=== PATIENT | female | born 1970 | race Caucasian/White ===

== ENCOUNTER 2017-05-16 20:47 | Emergency (ER) | payer OTHER ==
[~2017-05-16] VITALS: Ht 162.6 cm; Wt 142.4 kg
[~2017-05-16 20:47] MED LIST: ALBU.083IS IH; ALBU90OI INH; ALLO100 PO; AZIT250 PO; BENZ100A PO; Bactrim Ds Tab1 EACH PO; CEPH500 PO; COLCRYS0.6 MG PO; CRUTCH2 XX; CYCL10 PO; Cheratussin AC118 ML PO; DULO30 PO; GABA300; LEVSOD50 PO; LEVSOD75 PO; METF500 PO; METPRE4DP PO; MUPI2TC TOP; Mucinex600 MG PO; Naprosyn500 MG PO; Neurontin 300300 MG PO; Norco 10-325 T1 EACH PO; Norco 5-325 Ta1 EACH PO; PENVK500 PO; PRED20 PO; Percocet 5-3251 EACH PO; Prednisone20 MG PO; VALA500 PO; Valium5 MG PO; Ventolin Soln3 ML INH; Zofran Odt4 MG PO; [UNRECOGNIZED DRUG - REMARK]
[2017-05-16 23:28] LABS: Source, Urine Clean Catch
[2017-05-16 23:32] LABS: Bilirubin, Urine Neg (Neg); Blood, Urine Neg (Neg); Glucose Qualitative, Urine Neg (Neg); Ketones, Urine 2+ (Neg); Leukocyte Esterase, Urine 2+ (Neg); Nitrite, Urine Neg (Neg); Protein, Urine 2+ (Neg); Specific Gravity, Urine 1.025 (1.003-1.022); Urobilinogen, Urine NORM (Normal)
[2017-05-16 23:35] LABS: BASOPHILS ABSOLUTE AUTO 0.04 K/mm3 (0.00-0.23); BASOPHILS PERCENT AUTO 0 % (0-2); EOSINOPHILS ABSOLUTE AUTO 0.02 K/mm3 (0.00-0.68); EOSINOPHILS PERCENT AUTO 0 % (0-6); Hematocrit 47.5 % (33.0-51.0); Hemoglobin 15.7 g/dL (11.5-16.0); IMMATURE GRAN ABSOLUTE AUTO 0.04 K/mm3 (0.00-0.10); IMMATURE GRAN PERCENT AUTO 0 % (0-1); LYMPHOCYTES ABSOLUTE AUTO 1.48 K/mm3 (0.84-5.20); LYMPHOCYTES PERCENT AUTO 12 % (21-46); MONOCYTES ABSOLUTE AUTO 0.83 K/mm3 (0.16-1.47); MONOCYTES PERCENT AUTO 7 % (4-13); Mean Corpuscular HGB 30.4 pg (26.0-34.0); Mean Corpuscular HGB Conc 33.1 g/dL (31.5-36.5); Mean Corpuscular Volume 92 fL (80-100); Mean Platelet Volume 9.4 fL (9.1-12.4); NEUTROPHILS ABSOLUTE AUTO 10.28 K/mm3 (1.96-9.15); NEUTROPHILS PERCENT AUTO 81 % (41-73); Platelet Count 276 K/mm3 (150-400); RDW Coefficient Variation 13.1 % (11.7-14.2); RDW Standard Deviation 44.1 fL (35.1-46.3); Red Blood Cell Count 5.17 M/mm3 (3.80-5.20); White Blood Cell Count 12.69 K/mm3 (4.00-11.30)
[2017-05-16 23:40] LABS: Appearance, Urine Hazy (Clear); Color, Urine Amber (P-Yellow)
[2017-05-16 23:41] LABS: Bacteria Many /hpf; Red Blood Cells, Urine Not Seen /hpf (0-2); Squamous Epithelial Cells Few /hpf (Few); White Blood Cells, Urine 25-50 /hpf (0-5)
[2017-05-16] MEDS ORDERED: IBUP600 PO (23:51)
[2017-05-16 23:53] LABS: Influenza A Negative (NEGATIVE); Influenza B Negative (NEGATIVE)
[2017-05-16 23:55] LABS: Alanine Aminotransfer (ALT/SGP 179 U/L (12-78); Albumin, Blood 3.5 g/dL (3.4-5.0); Albumin/Globulin Ratio 0.7 (0.8-1.8); Alk Phos 105 U/L (50-136); Anion Gap 13 mmol/L (6-16); Aspartate Aminotrans (AST/SGOT 90 U/L (12-37); Bilirubin, Total 0.5 mg/dL (0.1-1.0); Blood Urea Nitrogen 16 mg/dL (8-24); Bun/Creatinine Ratio 26.2 (12.0-20.0); CO2, Blood 23 mmol/L (21-32); Calcium, Blood 8.8 mg/dL (8.5-10.1); Chloride, Blood 110 mmol/L (98-108); Creatinine, Blood 0.61 mg/dL (0.40-1.00); Globulin, Blood 5.2 g/dL (2.2-4.0); Glomerular Filtration Rate >60 (60-); Glucose, Blood 107 mg/dL (70-99); Potassium, Blood 3.4 mmol/L (3.5-5.5); Sodium, Blood 146 mmol/L (136-145); Total Protein, Blood 8.7 g/dL (6.4-8.2)
[2017-05-17] MEDS ORDERED: Zofran Odt4 MG SL (00:45)
[2017-05-17] MEDS ORDERED: CEPH500 PO (00:45)
[2017-07-09] MEDS ORDERED: LEVSOD50 PO (14:58)
[2017-07-09] MEDS ORDERED: ALLO100 PO (14:59)
[2017-07-09] MEDS ORDERED: METFORMIN HCL500 MG PO (14:59)
[2017-07-09] MEDS ORDERED: Mobic15 MG PO (15:00)
[2017-07-09] MEDS ORDERED: Neurontin 300300 MG PO (15:00)
[2017-07-09] MEDS ORDERED: PRED10 PO (15:01)
[2017-07-09] MEDS ORDERED: Zofran4 MG PO (15:02)
[2017-07-09] MEDS ORDERED: EPCLUSA 400 MG1 EACH PO (15:03)
== END 2017-05-17 02:31 | disposition home or self-care (01) ==
LOC: ER 20:47
PROVIDERS: Emergency Medicine
DX: N39.0 Urinary tract infection, site not specified (principal); J45.909 Unspecified asthma, uncomplicated; M10.9 Gout, unspecified; E03.9 Hypothyroidism, unspecified; Z79.899 Other long term (current) drug therapy; Z86.19 Personal history of other infectious and parasitic diseases; Z79.84 Long term (current) use of oral hypoglycemic drugs; Z87.891 Personal history of nicotine dependence; Z90.49 Acquired absence of other specified parts of digestive tract
CPT/HCPCS: 80053; 81001; 81025; 83690; 85025; 87086; 87804; 96361; 96365; 96375; 96376; 99283; J0696; J1630; J2405; J2550; J7030

== ENCOUNTER → 2020-12-09 | Outpatient (CLI) | payer OTHER ==
[~2020-12-09] MED LIST changes: +EPCLUSA 400 MG1 EACH PO; +IBUP600 PO; +METFORMIN HCL500 MG PO; +Mobic15 MG PO; +PRED10 PO; +Zofran Odt4 MG SL; +Zofran4 MG PO
== END | disposition home or self-care (01) ==
LOC: LAB 19:23 → LAB SHORT 19:23
DX: L03.116 Cellulitis of left lower limb (principal)
CPT/HCPCS: 87070; 87077; 87147; 87186; 87205

== ENCOUNTER 2021-09-23 03:33 | Emergency (ER) | payer SELFPAY ==
[~2021-09-23] VITALS: Ht 160 cm; Wt 149.7 kg
[2021-09-23] MEDS ORDERED: PAXLOVID 2X1501 EACH PO (07:13)
== END 2021-09-23 07:24 | disposition home or self-care (01) ==
LOC: ER 03:33
DX: U07.1 COVID-19 (principal); J45.909 Unspecified asthma, uncomplicated; Z87.891 Personal history of nicotine dependence
CPT/HCPCS: 99284

== ENCOUNTER 2022-01-20 20:25 | Emergency (ER) | payer SELFPAY ==
[~2022-01-20] VITALS: Ht 160 cm; Wt 149.7 kg
[~2022-01-20 20:25] MED LIST changes: +PAXLOVID 2X1501 EACH PO
[2022-01-20 21:06] LABS: BASOPHILS ABSOLUTE AUTO 0.05 K/mm3 (0.00-0.23); BASOPHILS PERCENT AUTO 1 % (0-2); EOSINOPHILS ABSOLUTE AUTO 0.22 K/mm3 (0.00-0.68); EOSINOPHILS PERCENT AUTO 2 % (0-6); Hematocrit 43.9 % (33.0-51.0); Hemoglobin 14.7 g/dL (11.5-16.0); IMMATURE GRAN ABSOLUTE AUTO 0.03 K/mm3 (0.00-0.10); IMMATURE GRAN PERCENT AUTO 0 % (0-1); LYMPHOCYTES ABSOLUTE AUTO 1.27 K/mm3 (0.84-5.20); LYMPHOCYTES PERCENT AUTO 14 % (21-46); MONOCYTES ABSOLUTE AUTO 0.57 K/mm3 (0.16-1.47); MONOCYTES PERCENT AUTO 6 % (4-13); Mean Corpuscular HGB 31.5 pg (26.0-34.0); Mean Corpuscular HGB Conc 33.5 g/dL (31.5-36.5); Mean Corpuscular Volume 94 fL (80-100); Mean Platelet Volume 9.4 fL (9.1-12.4); NEUTROPHILS ABSOLUTE AUTO 7.26 K/mm3 (1.96-9.15); NEUTROPHILS PERCENT AUTO 77 % (41-73); Platelet Count 296 K/mm3 (150-400); RDW Coefficient Variation 13.3 % (11.7-14.2); RDW Standard Deviation 45.9 fL (35.1-46.3); Red Blood Cell Count 4.66 M/mm3 (3.80-5.20)
[2022-01-20 21:30] LABS: Albumin, Blood 3.5 g/dL (3.4-5.0); Albumin/Globulin Ratio 0.9 (0.8-1.8); Bilirubin, Total 0.3 mg/dL (0.1-1.0); Bun/Creatinine Ratio 20.5 (12.0-20.0); Calcium, Blood 8.4 mg/dL (8.5-10.1); Creatinine, Blood 0.68 mg/dL (0.40-1.00); Globulin, Blood 4.1 g/dL (2.2-4.0); Potassium, Blood 3.4 mmol/L (3.5-5.5); Total Protein, Blood 7.6 g/dL (6.4-8.2)
[2022-01-20] MEDS ORDERED: VALA500 PO (23:06)
[2022-01-20] MEDS ORDERED: Prednisone20 MG PO (23:06)
== END 2022-01-20 23:55 | disposition home or self-care (01) ==
LOC: ER 20:25
PROVIDERS: Student in an Organized Health Care Education/Training Program
DX: G51.0 Bell's palsy (principal); G43.909 Migraine, unspecified, not intractable, without status migrainosus; J45.909 Unspecified asthma, uncomplicated; Z88.8 Allergy status to other drugs, medicaments and biological substances
CPT/HCPCS: 36415; 70450; 80053; 85025; 93005; 93010; A9270; J1200; J1885; J2765; J7512

== ENCOUNTER 2022-04-16 19:15 | Inpatient (IN) | payer OTHER ==
[~2022-04-16] VITALS: Ht 167.6 cm; Wt 157.0 kg
[2022-04-16 20:34] LABS: BASOPHILS ABSOLUTE AUTO 0.04 K/mm3 (0.00-0.23); BASOPHILS PERCENT AUTO 0 % (0-2); EOSINOPHILS ABSOLUTE AUTO 0.33 K/mm3 (0.00-0.68); EOSINOPHILS PERCENT AUTO 3 % (0-6); Hematocrit 43.3 % (33.0-51.0); Hemoglobin 14.8 g/dL (11.5-16.0); IMMATURE GRAN ABSOLUTE AUTO 0.04 K/mm3 (0.00-0.10); IMMATURE GRAN PERCENT AUTO 0 % (0-1); LYMPHOCYTES ABSOLUTE AUTO 0.38 K/mm3 (0.84-5.20); LYMPHOCYTES PERCENT AUTO 3 % (21-46); MONOCYTES ABSOLUTE AUTO 0.53 K/mm3 (0.16-1.47); MONOCYTES PERCENT AUTO 4 % (4-13); Mean Corpuscular HGB 32.7 pg (26.0-34.0); Mean Corpuscular HGB Conc 34.2 g/dL (31.5-36.5); Mean Corpuscular Volume 96 fL (80-100); Mean Platelet Volume 9.5 fL (9.1-12.4); NEUTROPHILS PERCENT AUTO 90 % (41-73); Platelet Count 299 K/mm3 (150-400); RDW Coefficient Variation 13.7 % (11.7-14.2); RDW Standard Deviation 48.5 fL (35.1-46.3); Red Blood Cell Count 4.53 M/mm3 (3.80-5.20); White Blood Cell Count 13.32 K/mm3 (4.00-11.30)
[2022-04-16 20:55] LABS: Albumin, Blood 3.6 g/dL (3.4-5.0); Albumin/Globulin Ratio 0.8 (0.8-1.8); Bilirubin, Total 0.7 mg/dL (0.1-1.0); Bun/Creatinine Ratio 15.2 (12.0-20.0); Calcium, Blood 9.1 mg/dL (8.5-10.1); Creatinine, Blood 0.59 mg/dL (0.40-1.00); Globulin, Blood 4.3 g/dL (2.2-4.0); Magnesium, Blood 1.8 mg/dL (1.6-2.4); Potassium, Blood 3.4 mmol/L (3.5-5.5); Total Protein, Blood 7.9 g/dL (6.4-8.2)
[2022-04-16 21:06] LABS: Influenza A, PCR NEGATIVE (NEGATIVE); Influenza B, PCR NEGATIVE (NEGATIVE); Resp Syncytial Virus, PCR NEGATIVE (NEGATIVE); SARS-Cov-2 (COVID-19) PCR, MMC NEGATIVE (NEGATIVE)
[2022-04-17 02:08] LABS: BASOPHILS ABSOLUTE AUTO 0.02 K/mm3 (0.00-0.23); BASOPHILS PERCENT AUTO 0 % (0-2); EOSINOPHILS PERCENT AUTO 0 % (0-6); Hematocrit 42.3 % (33.0-51.0); Hemoglobin 14.2 g/dL (11.5-16.0); IMMATURE GRAN ABSOLUTE AUTO 0.15 K/mm3 (0.00-0.10); IMMATURE GRAN PERCENT AUTO 1 % (0-1); LYMPHOCYTES ABSOLUTE AUTO 0.22 K/mm3 (0.84-5.20); LYMPHOCYTES PERCENT AUTO 2 % (21-46); MONOCYTES ABSOLUTE AUTO 0.07 K/mm3 (0.16-1.47); MONOCYTES PERCENT AUTO 1 % (4-13); Mean Corpuscular HGB 32.6 pg (26.0-34.0); Mean Corpuscular HGB Conc 33.6 g/dL (31.5-36.5); Mean Corpuscular Volume 97 fL (80-100); Mean Platelet Volume 9.7 fL (9.1-12.4); NEUTROPHILS ABSOLUTE AUTO 13.35 K/mm3 (1.96-9.15); NEUTROPHILS PERCENT AUTO 97 % (41-73); Platelet Count 293 K/mm3 (150-400); Red Blood Cell Count 4.35 M/mm3 (3.80-5.20); White Blood Cell Count 13.81 K/mm3 (4.00-11.30)
[2022-04-17 02:39] LABS: Albumin, Blood 3.1 g/dL (3.4-5.0); Albumin/Globulin Ratio 0.7 (0.8-1.8); Bilirubin, Total 0.3 mg/dL (0.1-1.0); Calcium, Blood 8.5 mg/dL (8.5-10.1); Creatinine, Blood 0.73 mg/dL (0.40-1.00); Globulin, Blood 4.5 g/dL (2.2-4.0); Potassium, Blood 3.1 mmol/L (3.5-5.5); Total Protein, Blood 7.6 g/dL (6.4-8.2)
--- NOTE | 2022-04-17 07:17 | NUR ---
PT ALERT NO S/S OF ACUTE DISTRESS. SAFETY MEASURES IN PLACE REPORT GIVEN TO ON COMING NURSE.
--- NOTE | 2022-04-17 07:30 | NUR ---
ASSUMED CARE: PT RECIEVING BREATHING TX AT THIS TIME. NSR ON TELE. NO ACUTE NEEDS OR DISTRESS.
--- NOTE | 2022-04-17 12:10 | NUR ---
PT RETURNED FROM [facility]. THIS RN INFORMED HER THAT SHE IS STILL NPO FOR EGD THIS AFTERNOON. AFTER A FEW MINUTES, PT POINTED TO BAG OF LINH BARS ON TABLE AND ASKED IF SHE COULD HAVE ONE. THIS RN REMINDED HER THAT SHE IS NOTHING BY MOUTH FOR PROCEDURE. CANDY WAS REMOVED TO BEDSIDE TABLE
[2022-04-17 13:00] LABS: Source, Urine Clean Catch
[2022-04-17 13:12] LABS: Appearance, Urine Clear (Clear); Bilirubin, Urine Neg (Neg); Blood, Urine Neg (Neg); Color, Urine Yellow (P-Yellow); Glucose Qualitative, Urine Neg (Neg); Ketones, Urine Neg (Neg); Leukocyte Esterase, Urine Neg (Neg); Nitrite, Urine Neg (Neg); Protein, Urine 1+ (Neg); Specific Gravity, Urine 1.015 (1.003-1.022); Urobilinogen, Urine NORM (Normal)
[2022-04-17 13:27] LABS: U Amphetamine Screen Not Detected; U Barbituate Screen Not Detected; U Benzodiazapine Screen Not Detected; U Buprenorphine Screen Not Detected; U Cannabinoids Screen Not Detected; U Cocaine Screen Not Detected; U Methadone Screen Not Detected; U Methamphetamine Screen Not Detected; U Opiates Screen Not Detected; U Oxycodone Screen Not Detected; U Phencyclidine Screen Not Detected; U Propoxyphene Screen Not Detected
--- NOTE | 2022-04-17 17:22 | NUR ---
SHIFT SUMMARY: PT'S TROPONIN CONTINUES TO RISE THIS SHIFT. DR Donohue AWARE AND HAS REVIEWED EKG. PLANS FOR HEPARIN GTT PER PHARMACY. AWAITING NEW ORDERS. WILL ADMINISTER ASPIRIN WHEN AVAILABLE FROM [facility]. PT ON 2L O2 SATTING LOW 90S WITH THIS. PCU STATUS. APPLICATIONS ENGINEER MANUFACTURING AND NURSING EMAIL SPECIALIST AWARE. NO ACUTE NEEDS AT THIS TIME.
[2022-04-17 18:54] LABS: Mean Platelet Volume 10.4 fL (9.1-12.4); Platelet Count 305 K/mm3 (150-400)
--- NOTE | 2022-04-17 19:00 | NUR ---
PT'S TROPONIN CAME BACK ELEVATED AGAIN. ATTEMPTED TO CALL DR Donohue AND DR SOLANO WITH NO ANSWER. CALL TO DR LIZAMA WHO STATED TO DO CARDIOLOGY CONSULT AND TROPONIN CHECK IN AM. DR SOLANO CALLED BACK AND STATED TO CANCEL CARDIOLOGY CONSULT AND CHECK TROPONIN AT 2200. WILL REPORT THIS TO NIGHT RN.
--- NOTE | 2022-04-18 07:19 | NUR ---
SHIFT SUMMARY PT AOX4, DROWSY T/O SHIFT, CONTINUED WHEEZING AUDIBLE T/O NOC DESPITE BREATHING TX. WHEN ASKED, PT DENIES FEELING SIGNIFICANTLY SOB. PT REQUESTS BREATHING TX THIS AM AFTER THIS RN OFFERS AND EXPRESSES CONCERN FOR INCREASED WHEEZING. PT DENIES CP, COUGHING IS INCREASED THIS AM. HEPARIN GTT CONTINUES TO INFUSE PER ORDER THIS AM. PT UP TO BATHROOM INDEPENDENTLY WITH STANDBY IN ROOM.
[2022-04-18 08:10] LABS: BASOPHILS ABSOLUTE AUTO 0.04 K/mm3 (0.00-0.23); BASOPHILS PERCENT AUTO 0 % (0-2); EOSINOPHILS ABSOLUTE AUTO 0.03 K/mm3 (0.00-0.68); EOSINOPHILS PERCENT AUTO 0 % (0-6); Hematocrit 42.7 % (33.0-51.0); Hemoglobin 14.1 g/dL (11.5-16.0); IMMATURE GRAN ABSOLUTE AUTO 0.23 K/mm3 (0.00-0.10); IMMATURE GRAN PERCENT AUTO 1 % (0-1); LYMPHOCYTES ABSOLUTE AUTO 0.53 K/mm3 (0.84-5.20); LYMPHOCYTES PERCENT AUTO 2 % (21-46); MONOCYTES ABSOLUTE AUTO 0.46 K/mm3 (0.16-1.47); MONOCYTES PERCENT AUTO 2 % (4-13); Mean Corpuscular HGB 32.3 pg (26.0-34.0); Mean Corpuscular Volume 98 fL (80-100); Mean Platelet Volume 9.9 fL (9.1-12.4); NEUTROPHILS ABSOLUTE AUTO 24.17 K/mm3 (1.96-9.15); NEUTROPHILS PERCENT AUTO 95 % (41-73); Platelet Count 310 K/mm3 (150-400); RDW Coefficient Variation 14.4 % (11.7-14.2); RDW Standard Deviation 52.2 fL (35.1-46.3); Red Blood Cell Count 4.36 M/mm3 (3.80-5.20); White Blood Cell Count 25.46 K/mm3 (4.00-11.30)
[2022-04-18 08:33] LABS: Albumin, Blood 3.2 g/dL (3.4-5.0); Albumin/Globulin Ratio 0.7 (0.8-1.8); Bilirubin, Total 0.2 mg/dL (0.1-1.0); Bun/Creatinine Ratio 31.1 (12.0-20.0); Calcium, Blood 8.6 mg/dL (8.5-10.1); Creatinine, Blood 0.68 mg/dL (0.40-1.00); Globulin, Blood 4.5 g/dL (2.2-4.0); Potassium, Blood 4.1 mmol/L (3.5-5.5); Total Protein, Blood 7.7 g/dL (6.4-8.2)
--- NOTE | 2022-04-18 18:17 | NUR ---
SHIFT SUMMARY; ASSUMED CARE AT 0700, INDEPENDANT IN ROOM, VSS STABLE T/O SHIFT. 3L 02 VIA NC, NEBS BY RT DURING SHIFT. L/S WHEEZY AND TIGHT T/O. REPORTED CHEST PRESSURE IN AM. EKG COMPLETED, STRESS TEST ORDERED FOR TOMORROW. HEPARIN DC'D TODAY. UP I CHAIR FOR MOST OF AFTERNOON. PLEASANT AND COOPERATIVE WITH CARE. WILL CONTINUE TO MONITOR AND TREAT UNTIL CHANGE OF SHIFT.
--- NOTE | 2022-04-18 21:36 | NUR ---
TACHYCARDIA-SVT SHORT 1-2 SECOND EPISODE OF SVT HR WENT FROM 60'S-80'S SINUS ARRHYTHMIA TO 160'S BRIEFLY WHILE THIS RN STANDING AT BEDSIDE TALKING WITH PT. PT HAD BEEN SPEAKING FOR LONG PERIODS TELLING THIS RN ABOUT HER PAST HISTORY. PT DID NOT FEEL HEART RACING. DENIES CP/PRESSURE. TACHYPNEIC, STILL WHEEZING, BREATHING DOES NOT APPEAR WORSE THAN AT START OF SHIFT. SPO2 >94% ON 2L O2 VIA NC. NO OTHER CHANGES AT THIS TIME. PT IS ON CONTINUOUS FARM MACHINERY MECHANIC.
[2022-04-19 05:18] LABS: BASOPHILS ABSOLUTE AUTO 0.04 K/mm3 (0.00-0.23); BASOPHILS PERCENT AUTO 0 % (0-2); EOSINOPHILS ABSOLUTE AUTO 0.04 K/mm3 (0.00-0.68); EOSINOPHILS PERCENT AUTO 0 % (0-6); Hematocrit 41.8 % (33.0-51.0); Hemoglobin 13.8 g/dL (11.5-16.0); IMMATURE GRAN ABSOLUTE AUTO 0.29 K/mm3 (0.00-0.10); IMMATURE GRAN PERCENT AUTO 1 % (0-1); LYMPHOCYTES ABSOLUTE AUTO 0.51 K/mm3 (0.84-5.20); LYMPHOCYTES PERCENT AUTO 2 % (21-46); MONOCYTES ABSOLUTE AUTO 0.61 K/mm3 (0.16-1.47); MONOCYTES PERCENT AUTO 3 % (4-13); Mean Corpuscular HGB 32.6 pg (26.0-34.0); Mean Corpuscular Volume 99 fL (80-100); NEUTROPHILS ABSOLUTE AUTO 21.92 K/mm3 (1.96-9.15); NEUTROPHILS PERCENT AUTO 94 % (41-73); Platelet Count 326 K/mm3 (150-400); RDW Coefficient Variation 14.4 % (11.7-14.2); RDW Standard Deviation 52.2 fL (35.1-46.3); Red Blood Cell Count 4.23 M/mm3 (3.80-5.20); White Blood Cell Count 23.41 K/mm3 (4.00-11.30)
--- NOTE | 2022-04-19 05:40 | NUR ---
SHIFT SUMMARY NO OTHER ACUTE CHANGES T/O SHIFT FOLLOWING SHORT EPISODE OF WHAT APPEARED TO BE SVT ON THE MONITOR AROUND 2114. PT DENIES CP/PRESSURE DURING EPISODE AND DENIED T/O SHIFT. NO C/O SIGNIFICANT SOB DESPITE DYSPNEA, TACHYPNEA, AND AUDIBLE WHEEZING. PT NPO AFTER 0000 THIS AM IN ANTICIPATION FOR STRESS TEST. PT HR FLUCTUATED T/O SHIFT 60'S-90'S W/SINUS ARRHYTHMIA. SATS >94% ON 2L, OCCASIONAL DROP WHILE ASLEEP TO 89-90% DID NOT MAINTAIN PT BACK UP TO 94-95% ON 2 L O2 VIA NC.
[2022-04-19 05:46] LABS: Bun/Creatinine Ratio 42.4 (12.0-20.0); Creatinine, Blood 0.73 mg/dL (0.40-1.00); Potassium, Blood 4.1 mmol/L (3.5-5.5)
--- NOTE | 2022-04-19 17:18 | NUR ---
SHIFT SUMMARY; ASSUMED CARE AT 0700, A/A/OX4 DURING SHIFT. INDEPENDANT IN ROOM. SAT IN CHAIR AT BEDSIDE MOST OF DAY. SHOWER TODAY AND LINEN CHANGE. L/S WHEEZY DURING SHIFT. BREATHING TREATMENTS BY RT PER ORDERS. DENIES CP OR TIGHTNESS TODAY, 2 DAY STRESS TEST STARTED THIS AM. VSS, 2L 02 VIA NC, NO ACUTE CHANGES, WILL CONTINUE TO MONITOR AND TREAT UNTIL CHANGE OF SHIFT.
[2022-04-20 06:39] LABS: BASOPHILS ABSOLUTE AUTO 0.05 K/mm3 (0.00-0.23); BASOPHILS PERCENT AUTO 0 % (0-2); EOSINOPHILS PERCENT AUTO 0 % (0-6); Hematocrit 42.6 % (33.0-51.0); Hemoglobin 13.9 g/dL (11.5-16.0); IMMATURE GRAN ABSOLUTE AUTO 0.19 K/mm3 (0.00-0.10); IMMATURE GRAN PERCENT AUTO 1 % (0-1); LYMPHOCYTES ABSOLUTE AUTO 0.52 K/mm3 (0.84-5.20); LYMPHOCYTES PERCENT AUTO 3 % (21-46); MONOCYTES ABSOLUTE AUTO 0.57 K/mm3 (0.16-1.47); MONOCYTES PERCENT AUTO 3 % (4-13); Mean Corpuscular HGB 32.1 pg (26.0-34.0); Mean Corpuscular HGB Conc 32.6 g/dL (31.5-36.5); Mean Corpuscular Volume 98 fL (80-100); Mean Platelet Volume 10.1 fL (9.1-12.4); NEUTROPHILS ABSOLUTE AUTO 15.65 K/mm3 (1.96-9.15); NEUTROPHILS PERCENT AUTO 92 % (41-73); Platelet Count 334 K/mm3 (150-400); RDW Coefficient Variation 14.4 % (11.7-14.2); RDW Standard Deviation 52.3 fL (35.1-46.3); Red Blood Cell Count 4.33 M/mm3 (3.80-5.20); White Blood Cell Count 16.98 K/mm3 (4.00-11.30)
[2022-04-20 07:05] LABS: Bun/Creatinine Ratio 48.8 (12.0-20.0); Calcium, Blood 8.7 mg/dL (8.5-10.1); Creatinine, Blood 0.78 mg/dL (0.40-1.00); Potassium, Blood 4.3 mmol/L (3.5-5.5)
--- NOTE | 2022-04-20 07:22 | NUR ---
SHIFT SUMMARY PT AOX4 T/O SHIFT. WHEEZING AND SOB AT START OF SHIFT SEEMED TO IMPROVE FOLLOWING X2 BREATHING TX. NO FURTHER ACUTE CHANGES T/O SHIFT. PT NO AFTER 0000 FOR SECOND PART OF STRESS TEST TODAY.
--- NOTE | 2022-04-20 10:01 | NUR ---
CARE ASSUMPTION THIS RN ASSUMED CARE AT 0700. VSS. SPO2 >95% ON 2L NC. PATIENT IS ALERT AND ORIENTED X4. PATIEN REPROTS NO PAIN. PATIENT REPORTS NO CHEST PAIN/PRESSURE. TELE SR/ SINUS ARRYTHMIA 70-80S. PATIENT HAS EDEMA IN LOWER EXTREMITES AND GENERALIZED. PATIENT REPORTS NO SHORTNESS OF BREATH. PATIENT HAS REDDNESS TO BILATERAL LOWER EXTREMITIES AND IS WARM TO TOUCH. PATIENT ABD IS NONTENDER AND MODERATELY DISTENDED. SEE SHIFT ASSESSMENT FOR FURTHER DETIALS. PATIENT IS INDEPDENT IN ADLS. PATIENT UPDATED ON PLAN OF CARE AND IS AWAITING SECOND PART OF STRESS TEST. PATIENT SITTING IN CHAIR AND CALL LIGHT WITHIN REACH.
--- NOTE | 2022-04-20 12:56 | NUR ---
Brief supportive visit this afternoon. Pt sitting in chair upon arrival wearing O2 via NC. Pt reports finishing her breathing treatment and this RN turned off. Brief review of plan of care. Pt reports having adequate support at home with her family. Offered suggestions to help reduce risk of future asthma attaks. Educated on environmental triggers, automobile mechanic motor via aerosol, smoke from brush [place] and discussed considering air purifier in the home. Pt reports having air purifier. Discussed the importance of routine F/U with PCP to better assist with asthma management. Offered therapeutic listening and answered questions Palliative Care will remain available
--- NOTE | 2022-04-20 14:17 | NUR ---
UPDATE THE SECOND PART OF STREESS TEST IS DONE. AWAITING FOR PATIENT THE IMAGE PART AND ESTIMATED TIME IS 1500 FOR THAT TO BE DONE.
[2022-04-20] MEDS ORDERED: ACET325 PO (16:06)
[2022-04-20] MEDS ORDERED: ATOR80 PO (16:07)
[2022-04-20] MEDS ORDERED: ALBU2.5V5 INH (16:07)
[2022-04-20] MEDS ORDERED: PRED20 PO (16:08)
[2022-04-20] MEDS ORDERED: ASPI81CH PO (16:09)
[2022-04-20] MEDS ORDERED: ALBU90OI INH (17:55)
--- NOTE | 2022-04-20 18:10 | NUR ---
SHIFT SUMMARY/DISCHARGE PATIENT NEURO REMAINS INTACT THROUGHOUT THE SHIFT. PATIENT STRESS TEST DONE, SEE RESULTS. PATIENT IS INDEPDENT IN ADLS THROUGHOUT THE SHIFT. PATIENT USES CALL LIGHT APPROPRIATELY THROUGHOUT THE SHIFT. PATIENT EDUCATED ON DISCHARGE INFORMATION AND FOLLOW UP APPOINTMENTS WITH PROVIDERS. MEDICATIONS FAXED TO PHARMACY. PATIENT VERBALIZED UNDERSTANDING. PATIENT IN ROOM WAITING FOR RIDE TO ARRIVE. ALL OF PATIENT BELONGNINGS WITH PATIENT AND PACKED UP.
== END 2022-04-20 18:18 | disposition home or self-care (01) | DRG 189 ==
LOC: ER 19:15 → PCU 23:25
PROVIDERS: Family Medicine; Student in an Organized Health Care Education/Training Program; ADMIT Family Medicine
DX: J96.01 Acute respiratory failure with hypoxia (principal); I21.A1 Myocardial infarction type 2; J45.21 Mild intermittent asthma with (acute) exacerbation; E87.20 Acidosis, unspecified; Z68.42 Body mass index [BMI] 45.0-49.9, adult; R07.89 Other chest pain; E87.6 Hypokalemia; E03.9 Hypothyroidism, unspecified; R73.03 Prediabetes; M10.9 Gout, unspecified; E66.01 Morbid (severe) obesity due to excess calories; F12.10 Cannabis abuse, uncomplicated; F10.10 Alcohol abuse, uncomplicated; Z20.822 Contact with and (suspected) exposure to COVID-19; Z87.01 Personal history of pneumonia (recurrent); Z88.8 Allergy status to other drugs, medicaments and biological substances; Z79.899 Other long term (current) drug therapy; Z79.84 Long term (current) use of oral hypoglycemic drugs; Z90.49 Acquired absence of other specified parts of digestive tract; Z79.2 Long term (current) use of antibiotics; Z79.52 Long term (current) use of systemic steroids; Z98.890 Other specified postprocedural states; Z87.891 Personal history of nicotine dependence
CPT/HCPCS: 0241U; 36415; 71045; 78452; 80048; 80053; 83605; 83735; 83880; 84145; 84484; 85025; 85049; 85730; 87040; 93005; 93010; 93017; 94640; 94644; 94645; 94664; 94760; 94762; 96374; 96375; 96376; 99285-25; A9270; A9500; C8929; J0360; J0696; J1644; J1650; J2785; J2930; J3480; J7030; J7512; Q9957

== ENCOUNTER 2022-08-03 20:31 | Inpatient (IN) | payer SELFPAY ==
[~2022-08-03] VITALS: Ht 160 cm; Wt 160.4 kg
[~2022-08-03 20:31] MED LIST changes: +ACET325 PO; +ALBU2.5V5 INH; +ASPI81CH PO; +ATOR80 PO
[2022-08-03 21:13] LABS: BASOPHILS ABSOLUTE AUTO 0.04 K/mm3 (0.00-0.23); BASOPHILS PERCENT AUTO 1 % (0-2); EOSINOPHILS ABSOLUTE AUTO 0.31 K/mm3 (0.00-0.68); EOSINOPHILS PERCENT AUTO 4 % (0-6); Hematocrit 40.6 % (33.0-51.0); Hemoglobin 13.4 g/dL (11.5-16.0); IMMATURE GRAN ABSOLUTE AUTO 0.02 K/mm3 (0.00-0.10); IMMATURE GRAN PERCENT AUTO 0 % (0-1); LYMPHOCYTES ABSOLUTE AUTO 0.42 K/mm3 (0.84-5.20); LYMPHOCYTES PERCENT AUTO 5 % (21-46); MONOCYTES ABSOLUTE AUTO 0.61 K/mm3 (0.16-1.47); MONOCYTES PERCENT AUTO 8 % (4-13); Mean Corpuscular HGB 31.9 pg (26.0-34.0); Mean Corpuscular Volume 97 fL (80-100); Mean Platelet Volume 9.5 fL (9.1-12.4); NEUTROPHILS ABSOLUTE AUTO 6.55 K/mm3 (1.96-9.15); NEUTROPHILS PERCENT AUTO 82 % (41-73); Platelet Count 251 K/mm3 (150-400); RDW Coefficient Variation 14.2 % (11.7-14.2); RDW Standard Deviation 50.4 fL (35.1-46.3); White Blood Cell Count 7.95 K/mm3 (4.00-11.30)
[2022-08-03 21:33] LABS: Albumin, Blood 3.4 g/dL (3.4-5.0); Albumin/Globulin Ratio 0.8 (0.8-1.8); Bun/Creatinine Ratio 14.5 (12.0-20.0); Calcium, Blood 8.7 mg/dL (8.5-10.1); Creatinine, Blood 0.62 mg/dL (0.40-1.00); Globulin, Blood 4.4 g/dL (2.2-4.0); Potassium, Blood 4.2 mmol/L (3.5-5.5); Total Protein, Blood 7.8 g/dL (6.4-8.2)
[2022-08-03 21:52] LABS: Influenza A, PCR NEGATIVE (NEGATIVE); Influenza B, PCR NEGATIVE (NEGATIVE); Resp Syncytial Virus, PCR NEGATIVE (NEGATIVE); SARS-Cov-2 (COVID-19) PCR, MMC NEGATIVE (NEGATIVE)
[2022-08-03 22:47] LABS: Base Excess Venous 4.8 mmol/L; Bicarbonate Venous 27.9 mmol/L (24.0-30.0); PCO2 Venous 47.6 mmHg (38-42)
[2022-08-04] MEDS ORDERED: LIPITOR80 MG PO (01:32)
[2022-08-04] MEDS ORDERED: Ventolin/Prove6.7 GM INH (01:33)
[2022-08-04 01:53] VITALS: BP 156/100
[2022-08-04 02:19] VITALS: BP 158/102
--- NOTE | 2022-08-04 03:31 | NUR ---
SHIFT SUMMARY NOC ADMIT FROM ED WITH DX OF ACUTE/CHRONIC HYPOXIC RESPIRATORY FAILURE. PT HAD C/O OF SOB FOR PAST 3 DAYS, WHICH WORSENED YESTERDAY AND DAUGHTER DROVE PT TO ED FOR TREATMENT. PT ON RA AT HOME AND NOW ON 3L/NC MAINTAINING SPO2 > 92%, BUT GET SEVERE DYSPNEA WITH EXERTION. PT ON TELE RUNNING SINUS RHYTHM IN HIGH 70'S. PT HAD ELEVATED TROPONIN IN ED, BUT DENIES ANY CP/DISCOMFORT AT THIS TIME. PT WAS ABLE TO TRANSFER FROM ED GURNEY TO BED WITH 2P SBA. PT IS CURRENTLY RESTING WITH BED IN LOWEST POSITION, AND CALL LIGHT WITHIN REACH.
[2022-08-04 04:22] VITALS: BP 141/84
[2022-08-04 05:00] LABS: BASOPHILS ABSOLUTE AUTO 0.03 K/mm3 (0.00-0.23); BASOPHILS PERCENT AUTO 0 % (0-2); EOSINOPHILS ABSOLUTE AUTO 0.01 K/mm3 (0.00-0.68); EOSINOPHILS PERCENT AUTO 0 % (0-6); Hematocrit 42.4 % (33.0-51.0); Hemoglobin 13.9 g/dL (11.5-16.0); IMMATURE GRAN ABSOLUTE AUTO 0.03 K/mm3 (0.00-0.10); IMMATURE GRAN PERCENT AUTO 0 % (0-1); LYMPHOCYTES PERCENT AUTO 2 % (21-46); MONOCYTES ABSOLUTE AUTO 0.06 K/mm3 (0.16-1.47); MONOCYTES PERCENT AUTO 1 % (4-13); Mean Corpuscular HGB 31.8 pg (26.0-34.0); Mean Corpuscular HGB Conc 32.8 g/dL (31.5-36.5); Mean Corpuscular Volume 97 fL (80-100); Mean Platelet Volume 9.4 fL (9.1-12.4); NEUTROPHILS ABSOLUTE AUTO 8.44 K/mm3 (1.96-9.15); NEUTROPHILS PERCENT AUTO 96 % (41-73); Platelet Count 285 K/mm3 (150-400); RDW Standard Deviation 50.3 fL (35.1-46.3); Red Blood Cell Count 4.37 M/mm3 (3.80-5.20); White Blood Cell Count 8.77 K/mm3 (4.00-11.30)
[2022-08-04 05:57] LABS: Albumin, Blood 3.5 g/dL (3.4-5.0); Albumin/Globulin Ratio 0.8 (0.8-1.8); Bilirubin, Total 0.7 mg/dL (0.1-1.0); Bun/Creatinine Ratio 16.5 (12.0-20.0); Calcium, Blood 8.7 mg/dL (8.5-10.1); Creatinine, Blood 0.61 mg/dL (0.40-1.00); Globulin, Blood 4.6 g/dL (2.2-4.0); Potassium, Blood 3.9 mmol/L (3.5-5.5); Thyroid Stimulating Hormone 1.74 uIU/mL (0.360-4.800); Total Protein, Blood 8.1 g/dL (6.4-8.2)
[2022-08-04 07:16] VITALS: BP 154/82
[2022-08-04 14:38] VITALS: BP 131/73
--- NOTE | 2022-08-04 18:00 | NUR ---
SHIFT SUMMARY: PATIENT A&OX4. CALM, PLEASANT AND COOPERATIVE c CARE. USES CALL LIGHT APPROPRIATELY AND ABLE TO MAKE NEEDS KNOWN. PATIENT REPORTS HEADACHE, MEDICATED X1 c TYLENOL c GOOD RELIEF. LUNGS IS COARSE AND EXP WHEEZES T/O TO AUSCULTATION. PATIENT ON O2 2L VIA NC c SPO2 OF 92-94% T/O SHIFT. PATIENT ON CONTINUES BIOX. THIS RN NOTED WHEN PATIENT IN A DEPTH SLEPT OXYGENATION DROOPED TO LOW 70'S. CALLED DR. VERGARA REGARDING THIS ISSUE AND MENTION THAT PATIENT WOULD BENEFITS TO HAVE A NOCTURNAL OXIMETRY SLEEP STUDY. SLEEP STUDY WAS ORDERED BY DR. VERGARA. PATIENT DENIES CP/PRESSURE, SOB, N/V. LAST TROP VALUE WAS [address] VERGARA IS AWARE OF THIS VALUE[address] PLUS 1 EDEMA TO BLE c REDNESS AND DRY. PATIENT STATED, "I HAVE THIS CONDITION FOR MANY YEARS." PATIENT AMBULATES TO BATHROOM AND BACK IN BED INDEPENDENTLY. DRINKING AND EATING WELL WITHOUT ANY DIFFICULTIES. VITAL SIGNS REVIEWED. RECEIVED SCHEDULED MEDS PER EMAR. PIV TO L FOREARM SALINE LOCKED.
[2022-08-04 19:42] VITALS: BP 149/85
--- NOTE | 2022-08-04 20:35 | NUR ---
NOTIFIED BY U FALL INTERN PT HAD 10 SECOND RUN OF SVT. PT ASYMPTOMATIC. RETAIL ACCOUNT MANAGER NOTIFIED. WILL CONTINUE TO MONITOR PT FOR CHANGE IN CONDITION.
--- NOTE | 2022-08-05 03:03 | NUR ---
SHIFT SUMMARY NOC PT A/O X 4. PLEASANT AND COOPERATIVE WITH CARE.PT ON O2 2L/NC MAINTAINING SPO2 > 92%. PT WAS SUPPOSED TO HAVE SLEEP STUDY TONIGHT, BUT RT ONLY HAD 2 STAFF, SO PT WILL HAVE SLEEP STUDY CONDUCTED ON 08/05/22. PT HAD C/O OF SALCIDO AND WAS MEDICATED PER EMAR WITH TYLENOL. PT ALSO HAD C/O OF SORE THROAT FROM COUGHING AND O2 AND ORDER FOR COUGH DROPS OBTAINED. PT ON TELE RUNNING SR @ 70 BPM PT IS CURRENTLY RESTING WITH BED IN LOWEST POSITION, AND CALL LIGHT WITHIN REACH.
[2022-08-05 04:43] VITALS: BP 150/88
[2022-08-05 07:39] VITALS: BP 151/79
[2022-08-05 15:24] VITALS: BP 151/90
--- NOTE | 2022-08-05 16:03 | NUR ---
SHIFT SUMMARY: NO NEW ACUTE CHANGES IN PATIENT CONDITION THIS SHIFT. PATIENT A&OX4. PLEASANT AND COOPERATIVE c CARE. DENIES CP/PRESSURE, N/V AND SOB. ON TELE, SR HR IN LOW 90'S BPM. LUNGS STILL WHEEZES T/O TO AUSCULTATION. ON O2 2L VIA NC c SPO2 RANGES 92-94%. PATIENT USES OXY MASK ON 2L WHEN SLEEPING T/O THE DAY c SPO2 MAINTAIN ABOVE 90%. PATIENT REPORTS DRINKING 9 CANS OF COKE A DAY. PER PATIENT HER SALCIDO HAS TO DO c NOT GETTING ENOUGH CAFFINE HERE IN THE HOSPITAL. PATIENT REPORTS SALCIDO 11/11, MEDICATED X1 c FIORICET. PATIENT STATED, "WHATEVER YOU GIVE ME THAT MEDICATION HELP c MY SALCIDO DOWN TO 04/13 RIGHT NOW." PATIENT AMBULATES TO BATHROOM AND BACK IN BED INDEPENDETLY WITHOUT USING ANY ASSISTIVE DEVICE. CONTINENT OF URINE AND STOOL. EATING AND DRINKING WELL. RT PLAN TO HAVE SLEEP STUDY DONE TONIGHT. RECEIVED BREATHING TX Q4 ADMINISTERED BY RT. RECEIVED MEDS PER EMAR. VITAL SIGNS REVIEWED. PIV TO L FOREARM SALINE LOCKED. CALL LIGHT IN REACH.
[2022-08-05 20:02] VITALS: BP 139/91
[2022-08-06] VITALS (8 sets, daily range): BP systolic 143–178; BP diastolic 97–124
--- NOTE | 2022-08-06 03:59 | NUR ---
SHIFT SUMMARY NOC PT A/O X 4. PLEASANT AND COOPERATIVE WITH CARE. PT ON 2L/NC AND OXY MASK MAINTAINING SPO2 >90% ON BIOX. PT ON TELE RUNNING NSR @ 72 BPM. PT IS CURRENTLY UNDERGOING A SLEEP STUDY FOR NICKI. PT IS POSSIBLE DISCHARGE TOMORROW PENDING SLEEP STUDY RESULTS. PT HAS FIORICET FOR CAFFEINE WITHDRAWALS PT REPORTS DRINKING 10 CANS OF COKE PER DAY AND NOW HAS WITHDRAWAL SALCIDO'S. PT IS CURRENTLY RESTING WITH BED IN LOWEST POSITION, AND CALL LIGHT WITHIN REACH.
--- NOTE | 2022-08-06 09:00 | NUR ---
pt sitting up on the side of the bed, a/ox4, pleasant and cooperative with care, follows commands well, denies pain, states she wants to go home today, lungs have exp wheezing t/o, resp even and unlabored, no cough noted, hrr, tele in place running sr per monitor, see strip, no edema noted, ppp+2, cap refill< 3 sec, vs stable, afebrile, iv site to lac area, infiltrated after hanging zithromax, will leave out, notified Dr. Llamas and switched her zithromax to oral, btx4, abd flat soft nontender, voids without diff, skin c/w/d, maew, up ad kiera, indep in room, cristal, call light in reach.
--- NOTE | 2022-08-06 16:35 | NUR ---
pt resting with eyes closed, call light in reach.
--- NOTE | 2022-08-06 18:08 | NUR ---
pt had some htn this evening, called Dr. Llamas and recieved order for hydralazine, iv was placed by lost charge card clerk as we removed her iv this am due to infiltration, hydralazine given, pt a bit tearful about not going home today, call light in reach.
[2022-08-07 00:30] VITALS: BP 150/105
[2022-08-07 01:14] VITALS: BP 153/100
--- NOTE | 2022-08-07 01:28 | NUR ---
CHEST PRESSURE - Rcvd call from tele saying pt had a run of SVT up to 170s. Pt c/o chest pressure 'like a boulder' around 2100 . Called night resident who ordered EKG and troponin. EKG said possible infarct and is in paper chart. Troponin was 159 which is trending down from last lab. Pt also hypertensive, rcving IV Hydralazine and htn is poorly controlled. Night resident ordered 10mg now Hydralazine and then one time Labetolol for diastolic>110 which was not given due to parameters. Pt still c/o of chest pressure now at 0130.
[2022-08-07 04:02] VITALS: BP 177/103
[2022-08-07 05:03] LABS: BASOPHILS ABSOLUTE AUTO 0.02 K/mm3 (0.00-0.23); BASOPHILS PERCENT AUTO 0 % (0-2); EOSINOPHILS ABSOLUTE AUTO 0.01 K/mm3 (0.00-0.68); EOSINOPHILS PERCENT AUTO 0 % (0-6); Hematocrit 43.3 % (33.0-51.0); Hemoglobin 14.1 g/dL (11.5-16.0); IMMATURE GRAN ABSOLUTE AUTO 0.08 K/mm3 (0.00-0.10); IMMATURE GRAN PERCENT AUTO 1 % (0-1); LYMPHOCYTES PERCENT AUTO 10 % (21-46); MONOCYTES ABSOLUTE AUTO 1.07 K/mm3 (0.16-1.47); MONOCYTES PERCENT AUTO 9 % (4-13); Mean Corpuscular HGB 31.6 pg (26.0-34.0); Mean Corpuscular HGB Conc 32.6 g/dL (31.5-36.5); Mean Corpuscular Volume 97 fL (80-100); Mean Platelet Volume 9.7 fL (9.1-12.4); NEUTROPHILS ABSOLUTE AUTO 9.26 K/mm3 (1.96-9.15); NEUTROPHILS PERCENT AUTO 80 % (41-73); Platelet Count 292 K/mm3 (150-400); RDW Coefficient Variation 14.5 % (11.7-14.2); Red Blood Cell Count 4.46 M/mm3 (3.80-5.20); White Blood Cell Count 11.54 K/mm3 (4.00-11.30)
[2022-08-07 05:32] LABS: Albumin, Blood 3.5 g/dL (3.4-5.0); Anion Gap 5 mmol/L (6-16); Blood Urea Nitrogen 21 mg/dL (8-24); Bun/Creatinine Ratio 33.5 (12.0-20.0); CO2, Blood 33 mmol/L (21-32); Chloride, Blood 103 mmol/L (98-108); Creatinine, Blood 0.63 mg/dL (0.40-1.00); Glomerular Filtration Rate 106 (60-); Glucose, Blood 108 mg/dL (70-99); Magnesium, Blood 2.3 mg/dL (1.6-2.4); Phosphorus, Blood 2.7 mg/dL (2.5-4.9); Potassium, Blood 3.9 mmol/L (3.5-5.5); Sodium, Blood 141 mmol/L (136-145)
--- NOTE | 2022-08-07 07:37 | NUR ---
Shift Summary Pt c/o chest pressure at start of shift - see nursing note. Pt unable to lay down t/o the night, she states if she does she has difficulty breathing. Lung sounds wheezy in all lobes t/o the night despite Q4 duoneb. WBC elevated this AM. EKG was done last night during chest pressure, abnormal EKG in chart and doctor was notified. Pt has one run of SVT in the 170s before c/o chest pain.
[2022-08-07 08:07] VITALS: BP 168/95
[2022-08-07 09:07] LABS: Base Excess Venous 12.6 mmol/L; Bicarbonate Venous 34.3 mmol/L (24.0-30.0); PCO2 Venous 50.6 mmHg (38-42); pH Blood Venous 7.46 (7.34-7.37)
[2022-08-07 16:00] VITALS: BP 154/92
--- NOTE | 2022-08-07 18:43 | NUR ---
SHIFT SUMMARY PT A&OX4, NAPPING IN RECLINER T/O SHIFT. SOB T/O SHIFT, EVEN W/ REST. DENIES CP/TIGHTNESS. CXR THIS SHIFT-LASIX & ECHO ORDERED. TOLERATING PO INTAKE. HTN NOTED, RESP RATE 22. CALL LIGHT W/IN REACH.
[2022-08-07 19:17] VITALS: BP 132/105
--- NOTE | 2022-08-08 05:08 | NUR ---
VENDETTE SUMMARY NO ACUTE EVENTS THIS SHIFT. A&OX4. PATIENT EFFECTIVELY COMMUNICATES NEEDS. VSS. RR EVEN AND UNLABORED AT REST ON 3L/MIN. SPO2 >92%. PATIENT NOTED TO SLEEP IN BEDSIDE RECLINCER THROUGHOUT THE NIGHT WITHOUT ANY REPORTED ISSUES. PATIENT DENIES CHEST PAIN OR OTHER SYMPTOMS. BED LOW AND LOCKED. CALL LIGHT WITHIN REACH. THIS RN WILL CONTINUE TO MONITOR.
[2022-08-08 05:17] VITALS: BP 170/99
[2022-08-08 07:41] VITALS: BP 147/79
--- NOTE | 2022-08-08 09:00 | NUR ---
pt sitting up in a recliner asleep, wakes easily, a/ox3, pleasant and coopertive with care, follows commands well, denies pain, is still sleepy, lungs are very dim t/o, on 3 liters 02 via n/c, resp even and unlabored, no cough noted, hrr, tele in place running sr per monitor, see strip, 1-2 + edema noted to b/l le, ppp+1, cap refill <3 sec, vs stable, afebrile, iv site to right wrist site is clear and patent, btx4, abd flat soft nontender, voids without diff, skin c/w/d, maew, cristal, call light in reach.
[2022-08-08 15:58] VITALS: BP 151/92
--- NOTE | 2022-08-08 18:09 | NUR ---
pt sat up in recliner sleeping most of the day, asking when she can go home, no acute changes this shift, call light in reach.
[2022-08-08 19:29] VITALS: BP 133/64
[2022-08-09 03:29] VITALS: BP 147/70
--- NOTE | 2022-08-09 03:30 | NUR ---
SAT MATH TUTOR SUMMARY NO ACUTE EVENTS THIS SHIFT. A&OX4. PATIENT EFFECTIVELY COMMUNICATES NEEDS. VSS. RR EVEN AND UNLABORED AT REST ON 3L/MIN O2. PATIENT SLEPT IN BEDSIDE RECLINING CHAIR THROUGHOUT THE NIGHT WITHOUT ANY ACUTE CONCERNS. CALL LIGHT WITHIN REACH. THIS RN WILL CONTINUE TO MONITOR.
[2022-08-09 05:07] LABS: BASOPHILS ABSOLUTE AUTO 0.01 K/mm3 (0.00-0.23); BASOPHILS PERCENT AUTO 0 % (0-2); EOSINOPHILS PERCENT AUTO 0 % (0-6); Hematocrit 42.9 % (33.0-51.0); IMMATURE GRAN ABSOLUTE AUTO 0.09 K/mm3 (0.00-0.10); IMMATURE GRAN PERCENT AUTO 1 % (0-1); LYMPHOCYTES ABSOLUTE AUTO 0.65 K/mm3 (0.84-5.20); LYMPHOCYTES PERCENT AUTO 6 % (21-46); MONOCYTES ABSOLUTE AUTO 0.41 K/mm3 (0.16-1.47); MONOCYTES PERCENT AUTO 4 % (4-13); Mean Corpuscular HGB 31.8 pg (26.0-34.0); Mean Corpuscular HGB Conc 32.6 g/dL (31.5-36.5); Mean Corpuscular Volume 98 fL (80-100); NEUTROPHILS ABSOLUTE AUTO 9.45 K/mm3 (1.96-9.15); NEUTROPHILS PERCENT AUTO 89 % (41-73); Platelet Count 328 K/mm3 (150-400); RDW Standard Deviation 50.5 fL (35.1-46.3); White Blood Cell Count 10.61 K/mm3 (4.00-11.30)
[2022-08-09 05:29] LABS: Anion Gap 5 mmol/L (6-16); Blood Urea Nitrogen 29 mg/dL (8-24); Bun/Creatinine Ratio 45.7 (12.0-20.0); CO2, Blood 35 mmol/L (21-32); Calcium, Blood 8.8 mg/dL (8.5-10.1); Chloride, Blood 101 mmol/L (98-108); Creatinine, Blood 0.64 mg/dL (0.40-1.00); Glomerular Filtration Rate 106 (60-); Glucose, Blood 194 mg/dL (70-99); Magnesium, Blood 2.5 mg/dL (1.6-2.4); Phosphorus, Blood 3.3 mg/dL (2.5-4.9); Potassium, Blood 3.9 mmol/L (3.5-5.5); Sodium, Blood 141 mmol/L (136-145)
[2022-08-09 07:54] VITALS: BP 137/79
[2022-08-09] MEDS ORDERED: FURO20 PO (13:48)
[2022-08-09] MEDS ORDERED: PRED20 PO (13:50)
[2022-08-09 14:33] VITALS: BP 149/65
--- NOTE | 2022-08-09 17:08 | NUR ---
DC SUMMARY; All discharge instructions reviewed with return verbal understanding from pt. IV dc'd. Reinterated importance of taking meds and making appt for PCP. Pt to lobby in wheelchair with SOLVENT STATION ATTENDANT. Portable home oxygen in use.
== END 2022-08-09 18:00 | disposition home or self-care (01) | DRG 193 ==
LOC: ER 20:31 → MEDS 08-04 00:19
PROVIDERS: Family Medicine; Internal Medicine; Physician Assistant; Student in an Organized Health Care Education/Training Program; ADMIT Internal Medicine
DX: J18.9 Pneumonia, unspecified organism (principal); I21.A1 Myocardial infarction type 2; J96.02 Acute respiratory failure with hypercapnia; J96.21 Acute and chronic respiratory failure with hypoxia; Z68.44 Body mass index [BMI] 60.0-69.9, adult; J45.901 Unspecified asthma with (acute) exacerbation; E66.2 Morbid (severe) obesity with alveolar hypoventilation; R77.8 Other specified abnormalities of plasma proteins; R51.9 Headache, unspecified; E03.9 Hypothyroidism, unspecified; R73.03 Prediabetes; M10.9 Gout, unspecified; Z20.822 Contact with and (suspected) exposure to COVID-19; Z90.49 Acquired absence of other specified parts of digestive tract; Z98.890 Other specified postprocedural states; Z87.891 Personal history of nicotine dependence; Z88.8 Allergy status to other drugs, medicaments and biological substances; Z99.81 Dependence on supplemental oxygen; Z71.3 Dietary counseling and surveillance; Z79.51 Long term (current) use of inhaled steroids; Z79.82 Long term (current) use of aspirin; Z79.899 Other long term (current) drug therapy; Z91.148 Patient's other noncompliance with medication regimen for other reason
CPT/HCPCS: 0241U; 36415; 71046; 80053; 80069; 82803; 83036; 83735; 83880; 84145; 84439; 84443; 84484; 85025; 87081; 93005; 93010; 93308; 93321; 94640; 94664; 94760; 94761; 94762; 96365; 96375; 99285-25; A9270; J0360; J0456; J0696; J1650; J1940; J2405; J2920; J2930; J7050; J7512

== ENCOUNTER 2022-12-07 06:38 | Day surgery (SDC) | payer OTHER ==
[~2022-12-07] VITALS: Ht 160 cm; Wt 158.0 kg
[2022-12-07] VITALS (7 sets, daily range): BP systolic 121–168; BP diastolic 61–115
[~2022-12-07 06:38] MED LIST changes: +FURO20 PO; +HYDHCL25 PO; +LIPITOR80 MG PO; +LOSA25 PO; +SYMBICORT 16010.2 GM INH; +Ventolin/Prove6.7 GM INH
[2022-12-07] MEDS ORDERED: CLOP75 PO (07:18)
--- NOTE | 2022-12-07 09:01 | NUR ---
PT BACK TO RECOVERY ROOM. PT EATING BREAKFAST. VSS. DENIES CP. TR BAND IN PLACE TO R RADIAL ARTERY. NO SWELLING OR BLEEDING NOTED.
--- NOTE | 2022-12-07 10:20 | NUR ---
TR BAND DEFLATED PER PROTOCOL. NO BLEEDING OR SWELLING. ARM BAND REMAINS IN PLACE. PT DENIES NEEDS. VSS. NO CP
--- NOTE | 2022-12-07 11:40 | NUR ---
PT DRESSED, NO BLEEDING FROM RADIAL SITE, TR BAND REMOVED, DOT CLOTH PLACED. VS STABLE. IV D/C CATHETER INTACT. PT CALLING RIDE. VERBALIZE D/C INSTRUCTIONS.
--- NOTE | 2022-12-07 12:03 | NUR ---
PT WHEELED OUT TO RIDE.
== END 2022-12-07 11:42 | disposition home or self-care (01) ==
LOC: MHTC 06:38
DX: R07.9 Chest pain, unspecified (principal); R06.02 Shortness of breath; R00.0 Tachycardia, unspecified; E78.5 Hyperlipidemia, unspecified; E11.9 Type 2 diabetes mellitus without complications; E66.2 Morbid (severe) obesity with alveolar hypoventilation; Z68.44 Body mass index [BMI] 60.0-69.9, adult
CPT/HCPCS: 76937; 93458; 99152; 99153; A9270; C1769; C1887; C1894; J1644; J3010; J7030; J7050; Q9967

== ENCOUNTER → 2023-09-04 | Outpatient (CLI) | payer OTHER ==
[~2023-09-04] MED LIST changes: +CLOP75 PO
== END ==
LOC: LAB SHORT 15:28 → LAB 15:28
DX: S81.802A Unspecified open wound, left lower leg, initial encounter (principal)
CPT/HCPCS: 87070; 87075; 87077; 87147; 87186; 87205

== ENCOUNTER 2024-04-24 17:12 | Emergency (ER) | payer OTHER ==
[~2024-04-24] VITALS: Ht 160 cm; Wt 154.2 kg
[2024-04-24 17:34] VITALS: BP 126/74
[2024-04-24] MEDS ORDERED: Acetaminophen 500 MG Tab PO ONE (17:40)
[2024-04-24] MEDS ORDERED: Diphth,Pertuss(Acell),Tet Vac 0.5 ML VIAL IM ONE ×2 (17:40→21:20)
[2024-04-24 18:24] LABS: Bun/Creatinine Ratio 10.6 (12.0-20.0); Calcium, Blood 9.1 mg/dL (8.5-10.1); Creatinine, Blood 0.76 mg/dL (0.40-1.00); Potassium, Blood 3.7 mmol/L (3.5-5.5)
== END 2024-04-24 21:40 | disposition home or self-care (01) ==
LOC: ER 17:12
PROVIDERS: Emergency Medicine
DX: S81.012A Laceration without foreign body, left knee, initial encounter (principal); I10 Essential (primary) hypertension; J45.909 Unspecified asthma, uncomplicated; E78.5 Hyperlipidemia, unspecified; R73.03 Prediabetes; Z88.8 Allergy status to other drugs, medicaments and biological substances; Z79.899 Other long term (current) drug therapy; Z79.02 Long term (current) use of antithrombotics/antiplatelets; W01.0XXA Fall on same level from slipping, tripping and stumbling without subsequent striking against object, initial encounter
CPT/HCPCS: 12035; 73562-LT; 80048; 90471; 90715; 99283-25; A9270

== ENCOUNTER 2024-09-16 18:16 | Emergency (ER) | payer OTHER ==
[~2024-09-16] VITALS: Ht 160 cm; Wt 154.2 kg
[2024-09-16 18:54] LABS: BASOPHILS ABSOLUTE AUTO 0.06 K/mm3 (0.00-0.23); BASOPHILS PERCENT AUTO 1 % (0-2); EOSINOPHILS ABSOLUTE AUTO 0.41 K/mm3 (0.00-0.68); EOSINOPHILS PERCENT AUTO 4 % (0-6); Hematocrit 39.8 % (33.0-51.0); Hemoglobin 13.4 g/dL (11.5-16.0); IMMATURE GRAN ABSOLUTE AUTO 0.03 K/mm3 (0.00-0.10); IMMATURE GRAN PERCENT AUTO 0 % (0-1); LYMPHOCYTES ABSOLUTE AUTO 2.12 K/mm3 (0.84-5.20); LYMPHOCYTES PERCENT AUTO 19 % (21-46); MONOCYTES ABSOLUTE AUTO 0.84 K/mm3 (0.16-1.47); MONOCYTES PERCENT AUTO 8 % (4-13); Mean Corpuscular HGB Conc 33.7 g/dL (31.5-36.5); Mean Corpuscular Volume 89 fL (80-100); NEUTROPHILS ABSOLUTE AUTO 7.72 K/mm3 (1.96-9.15); NEUTROPHILS PERCENT AUTO 69 % (41-73); NRBC ABSOLUTE 0.00 K/mm3 (0.00-0.02); NRBC Auto 0.0 /100 WBC (0.0-0.2); Platelet Count 346 K/mm3 (150-400); RDW Coefficient Variation 14.0 % (11.7-14.2); RDW Standard Deviation 45.5 fL (35.1-46.3)
[2024-09-16 19:41] LABS: Alanine Aminotransfer (ALT/SGP 27.0 U/L (12-78); Albumin, Blood 3.3 g/dL (3.4-5.0); Albumin/Globulin Ratio 0.7 (0.8-1.8); Anion Gap 8.0 mmol/L (3-11); Aspartate Aminotrans (AST/SGOT 24.0 U/L (12-37); Bilirubin, Total 0.5 mg/dL (0.1-1.0); Blood Urea Nitrogen 14.0 mg/dL (8-24); CO2, Blood 29.0 mmol/L (21-32); Calcium, Blood 9.3 mg/dL (8.5-10.1); Chloride, Blood 101.0 mmol/L (98-108); Creatinine, Blood 0.76 mg/dL (0.40-1.00); Globulin, Blood 4.6 g/dL (2.2-4.0); Glucose, Blood 93.0 mg/dL (70-99); Potassium, Blood 3.6 mmol/L (3.5-5.5); Sodium, Blood 134.0 mmol/L (136-145); Total Protein, Blood 7.9 g/dL (6.4-8.2)
[2024-09-16] MEDS ORDERED: Ketorolac Tromethamine 15mg Vial IV ONE (19:45)
[2024-09-16 20:00] VITALS: BP 110/59
== END 2024-09-16 20:24 | disposition home or self-care (01) ==
LOC: ER 18:16
PROVIDERS: Student in an Organized Health Care Education/Training Program
DX: R07.9 Chest pain, unspecified (principal); J45.909 Unspecified asthma, uncomplicated; E03.9 Hypothyroidism, unspecified; I10 Essential (primary) hypertension; E78.5 Hyperlipidemia, unspecified; Z88.8 Allergy status to other drugs, medicaments and biological substances; Z79.899 Other long term (current) drug therapy
CPT/HCPCS: 71046; 80053; 83690; 84484; 85025; 93005; 93010; 96374; 99285-25; J1885